=== PATIENT | male | born 1960 | race Caucasian/White ===

== ENCOUNTER 2018-07-16 13:53 | Outpatient (RCR) | payer OTHER, SELFPAY ==
--- NOTE | 2018-07-16 07:36 | PTTR_ITS ---
DATE: 07/16/18 OBJECTIVE: Therapeutic procedures ([id number]). Today I upgraded Seferino's current strengthening program. He was provided an upgraded 2 day per week strengthening routine with global strengthening placing emphasis on core stabilization and cardiovascular exercises. See flow sheets for exercises, weights and repetitions. He completed this program without limitations. Direct treatment time: 1:30 til 2:10 P.M. Completing the remainder of his program from 2:10 til 2:40 P.M. via Wellness at no charge. RF/gc
== END 2018-07-25 23:59 | disposition home or self-care (01) ==
LOC: PT 13:53
PROVIDERS: PCP Internal Medicine; Referring Provider Orthopaedic Surgery Orthopaedic Surgery of the Spine; Visit Provider Orthopaedic Surgery Orthopaedic Surgery of the Spine
DX: M54.5 Low back pain (principal); Z47.89 Encounter for other orthopedic aftercare; Z98.1 Arthrodesis status
CPT/HCPCS: 97110

== ENCOUNTER 2018-10-27 12:58 | Outpatient (REF) | payer MEDICAID, SELFPAY ==
[2018-10-27 22:54] LABS: Anion Gap 10.3 mmol/L (3-11); BUN 14 mg/dL (7-18); CO2 26.7 mmol/L (21.0-32.0); CREATININE 1.03 mg/dL (0.70-1.30); Calcium 9.3 mg/dL (8.5-10.1); Chloride 103 mmol/L (98-107); Cholesterol 219 mg/dL (50-200); Glucose 95 mg/dL (70-100); HDL Cholesterol 46 mg/dL (40-60); LDL CHOLESTEROL 142 mg/dL (<100); Potassium 4.4 mmol/L (3.5-5.1); Sodium 140 mmol/L (136-145); Triglyceride 188 mg/dL (30-150)
== END 2018-10-27 13:18 ==
LOC: NCHCN 12:58
PROVIDERS: PCP Internal Medicine; Visit Provider Internal Medicine
DX: E78.5 Hyperlipidemia, unspecified (principal); E66.3 Overweight
CPT/HCPCS: 80048; 80061; 83721

== ENCOUNTER 2019-09-18 13:47 | Outpatient (REF) | payer MEDICAID, SELFPAY ==
[2019-09-18 21:42] LABS: Anion Gap 8.4 mmol/L (3-11); BUN 17 mg/dL (7-18); CO2 27.6 mmol/L (21.0-32.0); CREATININE 1.18 mg/dL (0.70-1.30); Calcium 9.2 mg/dL (8.5-10.1); Chloride 105 mmol/L (98-107); Glucose 85 mg/dL (70-100); Potassium 4.6 mmol/L (3.5-5.1); Sodium 141 mmol/L (136-145)
== END 2019-09-18 14:07 ==
LOC: NCHCN 13:47
PROVIDERS: PCP Internal Medicine; Visit Provider Internal Medicine
DX: I10 Essential (primary) hypertension (principal)
CPT/HCPCS: 80048

== ENCOUNTER 2020-08-12 13:08 | Outpatient (REF) | payer MEDICAID, SELFPAY ==
[2020-08-12 21:46] LABS: ALT 41 U/L (16-63); AST 27 U/L (15-37); Albumin 3.8 g/dL (3.4-5.0); Alkaline Phosphatase 63 U/L (46-116); Anion Gap 5.2 mmol/L (3-11); BUN 14 mg/dL (7-18); Bilirubin, Total 0.4 mg/dL (0.2-1.0); CO2 29.8 mmol/L (21.0-32.0); CREATININE 0.98 mg/dL (0.70-1.30); Calcium 8.8 mg/dL (8.5-10.1); Calculated LDL 131 mg/dL (<100); Chloride 108 mmol/L (98-107); Cholesterol 204 mg/dL (<200); Glucose 95 mg/dL (74-106); HDL Cholesterol 47 mg/dL (40-60); Potassium 4.2 mmol/L (3.5-5.1); Sodium 143 mmol/L (136-145); Total Protein 6.9 g/dL (6.4-8.2); Triglyceride 133 mg/dL (<150)
== END 2020-08-12 13:28 ==
LOC: NCHCN 13:08
PROVIDERS: PCP Internal Medicine; Visit Provider Internal Medicine
DX: E78.5 Hyperlipidemia, unspecified (principal); I10 Essential (primary) hypertension
CPT/HCPCS: 80053; 80061

== ENCOUNTER 2021-08-28 14:34 | Outpatient (REF) | payer MEDICAID, SELFPAY ==
[2021-08-28 14:57] LABS: Anion Gap 6.6 mmol/L (3-11); BUN 14 mg/dL (7-18); CO2 29.4 mmol/L (21.0-32.0); Calcium 9.4 mg/dL (8.5-10.1); Calculated LDL 127 mg/dL (<100); Chloride 104 mmol/L (98-107); Cholesterol 206 mg/dL (<200); Glucose 98 mg/dL (74-106); HDL Cholesterol 49 mg/dL (40-60); Potassium 4.8 mmol/L (3.5-5.1); Sodium 140 mmol/L (136-145); Triglyceride 153 mg/dL (<150)
== END 2021-08-28 14:35 | disposition home or self-care (01) ==
LOC: NCHCN 14:34
PROVIDERS: PCP Internal Medicine; Visit Provider Internal Medicine
DX: I10 Essential (primary) hypertension (principal); E78.5 Hyperlipidemia, unspecified
CPT/HCPCS: 80048; 80061

== ENCOUNTER 2022-11-01 13:07 | Outpatient (REF) | payer MEDICAID, SELFPAY ==
[2022-11-01 15:31] LABS: ALT 56 U/L (16-63); AST 43 U/L (15-37); Alkaline Phosphatase 71 U/L (46-116); Anion Gap 7.2 mmol/L (3-11); BUN 14 mg/dL (7-18); Bilirubin, Total 0.6 mg/dL (0.2-1.0); CO2 25.8 mmol/L (21.0-32.0); CREATININE 1.1 mg/dL (0.70-1.30); Calcium 9.1 mg/dL (8.5-10.1); Calculated LDL 123 mg/dL (<100); Chloride 105 mmol/L (98-107); Cholesterol 205 mg/dL (<200); Estimated GFR 76.37 (mL/min/1.73m2); Glucose 100 mg/dL (74-106); HDL Cholesterol 54 mg/dL (40-60); Potassium 4.8 mmol/L (3.5-5.1); Sodium 138 mmol/L (136-145); Total Protein 7.6 g/dL (6.4-8.2); Triglyceride 142 mg/dL (<150)
== END 2022-11-01 13:08 | disposition home or self-care (01) ==
LOC: NCHCN 13:07
PROVIDERS: PCP Internal Medicine; Visit Provider Nurse Practitioner Family
DX: I10 Essential (primary) hypertension (principal); E78.5 Hyperlipidemia, unspecified
CPT/HCPCS: 80053; 80061

== ENCOUNTER 2023-07-26 07:20 | Day surgery (SDC) | payer MEDICAID, SELFPAY ==
[2023-07-26 07:35] VITALS: BP 150/114; PULSE 92; RESP 22; TEMP 36.6; O2SAT 98
[2023-07-26] MEDS: Tropicam./Phenyleph. (1/2.5%) 5 ML BTL OS ×3 (07:47→07:58)
--- NOTE | 2023-07-26 08:05 | W.ANESPRE ---
General Info Date of Service Date Performed: 07/26/23 Height: 6 ft 1 in Weight: 108.8 kg Body Mass Index (BMI): 31.6 Surgical Procedure: Operation Date: 07/26/23 09:10 Proposed Procedure Side Surgeon p Cataract Extraction with IOL Implant Left Gus Lux MD Actual Procedure Side Surgeon p Cataract Extraction with IOL Implant Left Gus Lux MD Pre-Op Diagnosis Post-Op Diagnosis CATARACT LEFT EYE CATARACT LEFT EYE Meds Allergies and Home Medications Allergies Allergy/AdvReac Type Severity Reaction Status Date / Time No Known Allergies Allergy Unverified 07/26/23 07:35 Home Medication Medication Instructions Recorded amlodipine 10 mg tablet 10 mg PO DAILY 07/24/23 famotidine 20 mg tablet 20 mg PO DAILY PRN 07/24/23 methocarbamol 750 mg tablet 750 mg PO HS PRN 07/24/23 olmesartan 20 mg tablet 20 mg PO DAILY 07/24/23 sildenafil 100 mg tablet (Viagra) 100 mg PO DIRECTED 07/24/23 diclofenac sodium 1 % topical gel 1 applic topical DIRECTED 07/25/23 Current Visit Medications: Current Medications Generic Name Dose Route Start Last Admin Trade Name Freq PRN Reason Stop Dose Admin Acetaminophen 1,000 mg 07/26/23 06:00 Acetaminophen 500 Mg Tab PO 08/25/23 05:59 Q4H PRN PRN Balanced Salt Solution 500 ml 07/26/23 06:00 Balanced Salt Soln.-Plus 500 Ml Bag OP 08/25/23 05:59 DIRECTED [facility] Miscellaneous Medication 0 ml 07/26/23 06:00 Prednisolone 1%, Moxifloxacin 0.5%, Nepafenac 0.1% 5ml Btl OS 08/25/23 05:59 DIRECTED [facility] Miscellaneous Medication 0 ml 07/26/23 06:00 07/26/23 07:58 Tropicam./Phenyleph. (1/2.5%) 5 Ml Btl OS 08/25/23 05:59 1 drp DIRECTED [facility] Administration Tetracaine HCl 0 ml 07/26/23 06:00 Tetracaine 0.5% 4 Ml Btl OS 08/25/23 05:59 DIRECTED [facility] Medical History Medical History GERD (gastroesophageal reflux disease) HTN (hypertension) Medical History Comments:: if under anesthesia for a long period he experiences PONV Surgical History Surgical History Hx of knee surgery x3 2 acl recon and meniscus repair Hx of spinal fusion Tobacco Smoking/Tobacco Use Status: Former Tobacco Use Alcohol Alcohol Intake: current Alcohol intake frequency: 0-2 drinks per day Alcohol type: beer and wine Substance Use Substance use: Rarely Substance use type: marijuana Details: last alcohol t-1 last marijuana use t-3, smokes Vital Signs and Lab Results Vital Signs Most Recent Vital Signs in EMR: Most Recent Vital Signs Temp Pulse Resp BP Pulse Ox 36.6 C 92 H 22 150/114 H 98 07/26/23 07:35 07/26/23 07:35 07/26/23 07:35 07/26/23 07:35 07/26/23 07:35 Lab Results Blood Type / Crossmatch: No Data to Display Complete Blood Count: No Data to Display Complete Metabolic Panel: No Data to Display Liver Function Panel: No Data to Display Coagulation Panel: No Data to Display Cardiac Panel: No Data to Display Arterial Blood Gas: No Data to Display Venous Blood Gas: No Data to Display Pancreas Panel: No Data to Display Thyroid Panel: No Data to Display Infectious Disease: No Data to Display Blood Cultures: No Data to Display Toxicology Panel: No Data to Display Anesthesia Assessment and Plan Anesthesia History Personal History: No History of Anesthesia Complications Family History: No Family History of Anesthesia Complications Exercise Tolerance Exercise Tolerance: Metabolic Equivalents>4 Pertinent Negatives Pertinent Negatives: No Symptoms of GERD Cardiac & Pulmonary Exam Cardiac Exam: Normal S1/S2 Heart Sounds Pulmonary Exam: Clear Bilateral Breath Sounds Implantable Cardiac Device Does patient have a Pacemaker or an ICD?: No Airway Exam Known Difficult Airway: No Mallampati Class: 2 Mouth Opening: Normal (> 3cm) Thyromental Distance: Greater than 3 cm Facial Hair: Full Gloria Neck Range of Motion: Full ROM Neck Circumference: Normal Teeth Condition: Normal Dentition ASA Classification ASA Score: ASA 2 Emergency Case?: No NPO Status NPO Status: NPO Clears >2 hours, Solids >8 hours Anesthesia Plan Resuscitation Status: Full Code Anesthesia Technique: MAC Anesthesia Airway Planned: Natural Airway Monitors Used: Standard Monitors
[2023-07-26 08:06] VITALS: BMI 31.6
--- NOTE | 2023-07-26 08:08 | HPE_ITS ---
Assessment and Plan Assessment and plan (1) Nuclear age-related cataract, left eye: Status: Acute Assessment and plan: Assessment: Visually significant cataract of the left eye. Plan: Cataract extraction with lens implantation of the left eye. (2) Cortical age-related cataract, left eye: Status: Acute Assessment and plan: Assessment: Visually significant cataract of the left eye. Plan: Cataract extraction with lens implantation of the left eye. History of Present Illness History of Present Illness Chief Complaint: Progressive decreased vision, left eye and right eye Narrative: The patient is a 63-year-old male with history of diminished visual acuity in both eyes at both distance and near. He no significant difficulty with glare from driving at night. On examination he was noted to have bilateral n uclear/posterior subcapsular cataract. He is significantly symptomatic that he desires cataract surgery and attempt to improve and maximize his vision. PFSH All Active Problems (Updated 07/26/23 @ 08:12 by Gus Lux MD) Cortical age-related cataract, left eye (Acute) Nuclear age-related cataract, left eye (Acute) Medical History GERD (gastroesophageal reflux disease) HTN (hypertension) Surgical History Hx of knee surgery x3 2 acl recon and meniscus repair Hx of spinal fusion Social History Smoking/Tobacco Use Status: Former Tobacco Use Quit Date: 11/25/79 Smoking risk assessment performed?: Yes Alcohol Intake: current Alcohol Intake frequency: 0-2 drinks per day Alcohol type: beer and wine Drug use: Rarely Substance use type: marijuana Details: last alcohol t-1 last marijuana use t-3, smokes Housing: house Do you feel safe at home: Yes Do you feel safe in your relationship?: Yes Meds Allergies and Home Medications Allergies Allergy/AdvReac Type Severity Reaction Status Date / Time No Known Allergies Allergy Unverified 07/26/23 07:35 Home Medications Medication Instructions Recorded Confirmed Type amlodipine 10 mg tablet 10 mg PO DAILY 07/24/23 07/26/23 History famotidine 20 mg tablet 20 mg PO DAILY PRN 07/24/23 07/25/23 History methocarbamol 750 mg tablet 750 mg PO HS PRN 07/24/23 07/25/23 History olmesartan 20 mg tablet 20 mg PO DAILY 07/24/23 07/26/23 History sildenafil 100 mg tablet (Viagra) 100 mg PO DIRECTED 07/24/23 07/25/23 History diclofenac sodium 1 % topical gel 1 applic topical DIRECTED 07/25/23 07/26/23 History Exam Eyes Other: Most recent ocular examination reveals corrected visual acuity of 20/25 OD, 20/30 OS. Extract motility is normal. Intraocular pressure is 9 OD, 10 OS. Slit-lamp examination is significant for moderate nuclear/posterior subcapsular cataracts OU. Funduscopic examination reveals disc cupping of 0.3 OU with normal vessels, macula, peripheral retina and vitreous. Resp Auscultation: clear to auscultation bilaterally Cardio Rate: regular rate Rhythm: regular rhythm Results Last Vital Signs Temp 36.6 C 07/26/23 07:35 Pulse 92 H 07/26/23 07:35 Resp 22 07/26/23 07:35 BP 150/114 H 07/26/23 07:35 Pulse Ox 98 07/26/23 07:35
[2023-07-26] MEDS: Balanced Salt Soln.-PLUS 500 ML BAG OP (08:22)
[2023-07-26] MEDS: Duovisc Viscoelastic System EACH 1 EACH (08:23)
[2023-07-26] MEDS: Tetracaine 0.5% 4 ML BTL OS (08:23)
[2023-07-26] MEDS: Lidocaine 1% Pres-Free 5 ML VIAL (08:24)
[2023-07-26] MEDS: Phenylephrine/Lidocaine (15/10) MG/ML 1 ML VIAL (08:26)
[2023-07-26] MEDS: Povidone-Iodine Ophth 30 ML BTL (08:27)
--- NOTE | 2023-07-26 08:43 | W.PM.DSUDISC ---
Date of service: 07/26/23 Time of Service: 08:43 Discharge Plan Disposition Patient Disposition: Home Discharge Details Attending Provider: Gus Lux Primary Care Provider: Estella Salas Home Meds and New Rx's Prescriptions: No Action sildenafil [Viagra] 100 mg tablet 100 mg PO DIRECTED Patient Comments: Take 0.5-1 tablet by mouth as needed famotidine 20 mg Tablet 20 mg PO DAILY PRN methocarbamol 750 mg tablet 750 mg PO HS PRN Patient Comments: TAKE ONE TABLET BY MOUTH EVERY EVENING NEEDED amlodipine 10 mg tablet 10 mg PO DAILY Patient Comments: Take 1 tablet by mouth once a day for blood pressure olmesartan 20 mg tablet 20 mg PO DAILY Patient Comments: TAKE 1 TABLET BY MOUTH ONCE A DAY diclofenac sodium 1 % gel 1 applic TOPICAL DIRECTED Patient Comments: APPLY 4 GRAM TO AFFECTED AREA(S) EVERY 12 HOURS NEEDED FOR PAIN Discharge Instructions Stand Alone Forms: Post-op Topical Cataract, Andrew Bynum (DSU) Discharge Orders Discharge Orders: Discharge Order (Routine); Ordered 07/26/23 Ordered By: Gus Lux DS: Diagnosis Discharge Diagnosis (1) Nuclear age-related cataract, left eye: Status: Resolved (2) Cortical age-related cataract, left eye: Status: Resolved
--- NOTE | 2023-07-26 08:44 | W.PM.OP ---
Date of service: 07/26/23 Time of Service: 08:44 Operative Note Operative Note DATE OF PROCEDURE: 07/26/23 PRE-OP DIAGNOSIS: Nuclear/posterior subcapsular cataract, left eye POST-OP DIAGNOSIS: same PROCEDURE: Cataract extraction using phacoemulsification with intraocular lens implant, left eye SURGEON: Gus Lux ANESTHESIA TYPE: Local By Surgeon and MAC Refer to Anesthesia Record PATHOLOGY: none sent COMPLICATIONS: None Patient was transported to: same day Patient's condition: stable Implants: Varun and Varun Tecnis Eyhance DIB00 Indications: Progressive decreased vision due to cataract, left eye Procedure Description: CATARACT SURGERY OPERATIVE REPORT PREOPERATIVE DIAGNOSIS: 1. Nuclear/posterior subcapsular cataract, left eye POSTOPERATIVE DIAGNOSIS: Same OPERATION: 1. Cataract extraction using phacoemulsification with posterior chamber intraocular lens implant, left eye. IOL: IOL Metal Base Blocker/Model: Varun & Varun Tecnis Eyhance DIB00 IOL Power: + 15.0 diopters IOL Serial Number: [id number] Optic Diameter: 6.0 mm Haptic/Overall Diameter: 13.0 mm PHACO INFO: Jose PinchPointurion Vision System with OZil and Active Fluidics Cumulative Dispersed Energy (CDE): 10.56 seconds SURGEON: Gus Lux MD, VICKY ANESTHESIA: Monitored A [facility] (MAC), with local sub-tenon's anesthetic infiltration COMPLICATIONS: None SPECIMENS: None INDICATIONS FOR PROCEDURE: The patient is a 62-year-old male with history of diminished visual acuity in his left eye secondary to the development of nuclear/posterior subcapsular cataract. He is significantly symptomatic that he desires cataract surgery and attempt to improve and maximize his vision. The option of cataract surgery was offered to the patient and he wished to proceed. See office notes for detailed information. PROCEDURE: The correct surgical eye was identified and marked as the left eye and the pupil was dilated in the preoperative area using mydriatics and cycloplegics. The dilated pupil size was 7.0 mm. The patient elected to proceed without oral sedation. The patient was brought to the operating room where cardiopulmonary monitoring was instituted and surgical time-out was performed, confirming the correct operative eye and IOL power. Topical anesthesia was administered and ophthalmic povidone-iodine 5% was instilled into the conjunctival fornices. The kita-ocular area was prepped with Betadine 10% solution and draped in the usual sterile fashion for intraocular surgery, including an aperture drape. A Tegaderm transparent film dressing was cut in half and used to cover the lashes and lid margins. Care was taken to sequester the lashes and lid margins under the Tegaderm dressing. A lid speculum was placed between the lids of the operative eye and the Jose LuxOR Revalia operating microscope was maneuvered into position. Javier scissors were then used to make a conjunctival buttonhole approximately 6mm posterior to the limbus in the inferonasal quadrant. Blunt dissection was carried out to expose bare sclera, and a blunt-tipped sub-tenon?s anesthesia cannula was introduced and passed posteriorly along the globe where non-preserved plain lidocaine was injected into posterior sub-Tenon?s space. A sideport knife was used to make a paracentesis port. Intraocular phenylephrine/lidocaine was injected into the anterior chamber.. The anterior chamber was filled with viscoelastic. A keratome knife was used to construct a 2-plane near-clear corneal tunnel extending 2.0mm into clear cornea. A flap was raised on the anterior capsule and capsulorhexis forceps were used to complete a continuous curvilinear capsulorhexis of 5.0 mm. Balanced salt solution was then used to perform cortical cleaving hydrodissection and nuclear hydrodelineation until the lens could be freely rotated within the capsular bag. The lens nucleus was then disassembled and removed within the capsular bag and iris plane using phacoemulsification. Residual cortical material was removed using the irrigation/aspiration handpiece. The posterior capsule was carefully polished to remove as much residual lens epithelial cells as safely possible. The capsular bag was then inflated and the anterior chamber deepened with viscoelastic. The lens implant described above was inserted into the capsular bag using the Varun and Varun Simplicity pre-loaded injector. A Kuglen hook was used to dial the IOL into position. Residual viscoelastic was then removed first from posterior to the IOL, then from the anterior chamber using the I/A handpiece. The lens implant was noted to center nicely within the capsular bag. The incisions were stromally hydrated, and the anterior chamber was reformed using BSS. Then 0.5cc of moxifloxacin 1.0mg/ml were injected into the capsular bag and anterior chamber. The incisions were checked with a Weck spear and found to be secure. Several drops of ophthalmic povidone-iodine 5% were then applied to the eye followed by two drops of Imprimis combination prednisolone/moxifloxacin/nepafenac solution. The drapes were removed and a clear plastic protective eye shield was placed over the eye. The patient was then returned to [facility] Day Surgery in stable condition.
[2023-07-26 08:58] VITALS: BP 132/94; PULSE 79; RESP 20; TEMP 36.7; O2SAT 98
--- NOTE | 2023-07-26 09:04 | ANES.PREOP_ITS ---
cancel document General Info Date of Service Date Performed: 07/26/23 Height: 6 ft 1 in Weight: 108.8 kg Body Mass Index (BMI): 31.6 Surgical Procedure: Operation Date: 07/26/23 09:10 Proposed Procedure Side Surgeon p Cataract Extraction with IOL Implant Left Gus Lux MD Actual Procedure Side Surgeon p Cataract Extraction with IOL Implant Left Gus Lux MD Pre-Op Diagnosis Post-Op Diagnosis CATARACT LEFT EYE CATARACT LEFT EYE Meds Allergies and Home Medications Allergies Allergy/AdvReac Type Severity Reaction Status Date / Time No Known Allergies Allergy Unverified 07/26/23 07:35 Home Medication Medication Instructions Recorded amlodipine 10 mg tablet 10 mg PO DAILY 07/24/23 famotidine 20 mg tablet 20 mg PO DAILY PRN 07/24/23 methocarbamol 750 mg tablet 750 mg PO HS PRN 07/24/23 olmesartan 20 mg tablet 20 mg PO DAILY 07/24/23 sildenafil 100 mg tablet (Viagra) 100 mg PO DIRECTED 07/24/23 diclofenac sodium 1 % topical gel 1 applic topical DIRECTED 07/25/23 PFSH Active Problems Active Problems: Problem Status Onset Code Cortical age-related cataract, left eye H25.012 Nuclear age-related cataract, left eye H25.12 Medical History Medical History GERD (gastroesophageal reflux disease) HTN (hypertension) Medical History Comments:: if under anesthesia for a long period he experiences PONV Surgical History Surgical History Hx of knee surgery x3 2 acl recon and meniscus repair Hx of spinal fusion Tobacco Smoking/Tobacco Use Status: Former Tobacco Use Alcohol Alcohol Intake: current Alcohol intake frequency: 0-2 drinks per day Alcohol type: beer and wine Substance Use Substance use: Rarely Substance use type: marijuana Details: last alcohol t-1 last marijuana use t-3, smokes Vital Signs and Lab Results Vital Signs Most Recent Vital Signs in EMR: Most Recent Vital Signs Temp Pulse Resp BP Pulse Ox 36.7 C 79 20 132/94 H 98 07/26/23 08:58 07/26/23 08:58 07/26/23 08:58 07/26/23 08:58 07/26/23 08:58 Lab Results Blood Type / Crossmatch: No Data to Display Complete Blood Count: No Data to Display Complete Metabolic Panel: No Data to Display Liver Function Panel: No Data to Display Coagulation Panel: No Data to Display Cardiac Panel: No Data to Display Arterial Blood Gas: No Data to Display Venous Blood Gas: No Data to Display Pancreas Panel: No Data to Display Thyroid Panel: No Data to Display Infectious Disease: No Data to Display Blood Cultures: No Data to Display Toxicology Panel: No Data to Display Anesthesia Assessment and Plan Anesthesia History Personal History: No History of Anesthesia Complications Family History: No Family History of Anesthesia Complications Exercise Tolerance Exercise Tolerance: Metabolic Equivalents>4 Pertinent Negatives Pertinent Negatives: No Symptoms of GERD Cardiac & Pulmonary Exam Cardiac Exam: Normal S1/S2 Heart Sounds Pulmonary Exam: Clear Bilateral Breath Sounds Implantable Cardiac Device Does patient have a Pacemaker or an ICD?: No Airway Exam Known Difficult Airway: No Mallampati Class: 2 Mouth Opening: Normal (> 3cm) Thyromental Distance: Greater than 3 cm Neck Range of Motion: Full ROM Neck Circumference: Normal Teeth Condition: Normal Dentition ASA Classification ASA Score: ASA 2 Emergency Case?: No NPO Status NPO Status: NPO Clears >2 hours, Solids >8 hours Anesthesia Plan Resuscitation Status: Full Code Anesthesia Technique: MAC Anesthesia Airway Planned: Natural Airway Monitors Used: Standard Monitors
--- NOTE | 2023-07-26 09:06 | W.ANESPOSTOP ---
Postoperative Evaluation Date, Time and Location Date Performed: 07/26/23 Time Performed: 09:06 Patient Location: Day Surgery Unit Vital Signs Most Recent Imported Vital Signs: Most Recent Vital Signs Temp Pulse Resp BP Pulse Ox 36.7 C 79 20 132/94 H 98 07/26/23 08:58 07/26/23 08:58 07/26/23 08:58 07/26/23 08:58 07/26/23 08:58 Pain Score Most Recent Pain Score: Most Recent Pain Score Pain Level 0 07/26/23 08:58 Assessment Mental Status: Awake (Alert & Oriented to Patient Baseline) Airway and Respiratory Function: Patent airway with normal (patient baseline) respiratory exam Cardiovascular Function: Hemodynamically Stable Hydration Status: Adequately Hydrated Nausea & Vomiting: No Nausea or Vomiting Pain: Pt. Denies Any Pain Peripheral Nerve Block: Patient did not receive a nerve block
[2023-07-26 09:35] VITALS: BMI 31.6
== END 2023-07-26 09:02 | disposition home or self-care (01) ==
LOC: SUR 07:21
PROVIDERS: PCP Internal Medicine; Visit Provider Ophthalmology
PROC: (CPT 66984; principal; 2023-07-26 09:00)
DX: H25.12 Age-related nuclear cataract, left eye (principal); H25.012 Cortical age-related cataract, left eye; K21.9 Gastro-esophageal reflux disease without esophagitis; I10 Essential (primary) hypertension
CPT/HCPCS: 66984; V2632

== ENCOUNTER 2023-08-09 10:21 | Day surgery (SDC) | payer MEDICAID, SELFPAY ==
--- NOTE | 2023-08-07 19:30 | W.PREOPHP ---
Assessment and Plan Assessment and plan (1) Nuclear age-related cataract, right eye: Status: Acute Assessment and plan: Assessment: Visually significant cataract, right eye. Plan: Cataract extraction with lens implantation, right eye. (2) Posterior subcapsular age-related cataract, right eye: Status: Acute Assessment and plan: Assessment: Visually significant cataract, right eye. Plan: Cataract extraction with lens implantation, right eye. History of Present Illness History of Present Illness Chief Complaint: Progressive decreased vision, right eye Narrative: The patient is a 62-year-old male who presented with complaints of progressive decreased vision in both eyes at both distance and near. He notes significant difficulty reading his paperwork as well as driving at night due to symptoms of glare. He can no longer read road signs at night. On examination he was noted to have bilateral cataracts. He was significantly symptomatic that he desired cataract surgery which was performed OS on 07/26/2023. He is doing well postoperatively, and now presents for cataract surgery in the right eye. Review of Systems All systems reviewed & are unremarkable except as noted in HPI and below PFSH All Active Problems Posterior subcapsular age-related cataract, right eye (Acute) Nuclear age-related cataract, right eye (Acute) Medical History GERD (gastroesophageal reflux disease) HTN (hypertension) Surgical History Hx of knee surgery x3 2 acl recon and meniscus repair Hx of spinal fusion Social History Smoking/Tobacco Use Status: Former Tobacco Use Quit Date: 11/25/79 Smoking risk assessment performed?: Yes Alcohol Intake: current Alcohol Intake frequency: 0-2 drinks per day Alcohol type: beer and wine Drug use: Rarely Substance use type: marijuana Housing: house Do you feel safe at home: Yes Do you feel safe in your relationship?: Yes Meds Allergies and Home Medications Allergies Allergy/AdvReac Type Severity Reaction Status Date / Time No Known Allergies Allergy Unverified 08/07/23 14:16 Home Medications Medication Instructions Recorded Confirmed Type amlodipine 10 mg tablet 10 mg PO DAILY 07/24/23 08/09/23 History famotidine 20 mg tablet 20 mg PO DAILY PRN 07/24/23 08/07/23 History methocarbamol 750 mg tablet 750 mg PO HS PRN 07/24/23 08/07/23 History olmesartan 20 mg tablet 20 mg PO DAILY 07/24/23 08/09/23 History sildenafil 100 mg tablet (Viagra) 100 mg PO DIRECTED 07/24/23 08/07/23 History diclofenac sodium 1 % topical gel 1 applic topical DIRECTED 07/25/23 08/09/23 History Exam Eyes Other: Most recent ocular examination revealed corrected visual acuity of 20/25 right eye, uncorrected visual acuity of 20/25 left eye. Intraocular pressure is 9 OD, 10 OS. Extract motility is normal. Slit-lamp examination reveals moderate nuclear and posterior subcapsular cataract in the right eye. There is a well-positioned PCIOL in the left eye with clear posterior capsule. Funduscopic examination shows disc cupping of 0.3 OU with normal vessels, macula, peripheral retina and vitreous. Resp Auscultation: clear to auscultation bilaterally Cardio Rate: regular rate Rhythm: regular rhythm
--- NOTE | 2023-08-09 06:26 | W.ANESPRE ---
General Info Date of Service Date Performed: 08/09/23 Height: 6 ft 1 in Weight: 108.8 kg Body Mass Index (BMI): 31.6 Surgical Procedure: Operation Date: 08/09/23 12:10 Proposed Procedure Side Surgeon p Cataract Extraction with IOL Implant Right Gus Lux MD Meds Allergies and Home Medications Allergies Allergy/AdvReac Type Severity Reaction Status Date / Time No Known Allergies Allergy Unverified 08/07/23 14:16 Home Medication Medication Instructions Recorded amlodipine 10 mg tablet 10 mg PO DAILY 07/24/23 famotidine 20 mg tablet 20 mg PO DAILY PRN 07/24/23 methocarbamol 750 mg tablet 750 mg PO HS PRN 07/24/23 olmesartan 20 mg tablet 20 mg PO DAILY 07/24/23 sildenafil 100 mg tablet (Viagra) 100 mg PO DIRECTED 07/24/23 diclofenac sodium 1 % topical gel 1 applic topical DIRECTED 07/25/23 Current Visit Medications: Current Medications Generic Name Dose Route Start Last Admin Trade Name Freq PRN Reason Stop Dose Admin Acetaminophen 1,000 mg 08/09/23 06:00 Acetaminophen 500 Mg Tab PO 09/08/23 05:59 Q4H PRN PRN Balanced Salt Solution 500 ml 08/09/23 06:00 Balanced Salt Soln.-Plus 500 Ml Bag OP 09/08/23 05:59 DIRECTED ELTON Miscellaneous Medication 0 ml 08/09/23 06:00 Prednisolone 1%, Moxifloxacin 0.5%, Nepafenac 0.1% 5ml Btl OD 09/08/23 05:59 DIRECTED ELTON Miscellaneous Medication 0 ml 08/09/23 06:00 Tropicam./Phenyleph. (1/2.5%) 5 Ml Btl OD 09/08/23 05:59 DIRECTED ELTON Tetracaine HCl 0 ml 08/09/23 06:00 Tetracaine 0.5% 4 Ml Btl OD 09/08/23 05:59 DIRECTED ELTON PFSH Active Problems Active Problems: Problem Status Onset Code Posterior subcapsular age-related cataract, right eye H25.041 Nuclear age-related cataract, right eye H25.11 Cortical age-related cataract, left eye H25.012 Nuclear age-related cataract, left eye H25.12 Medical History Medical History GERD (gastroesophageal reflux disease) HTN (hypertension) Medical History Comments:: if under anesthesia for a long period he experiences PONV Surgical History Surgical History Hx of knee surgery x3 2 acl recon and meniscus repair Hx of spinal fusion Tobacco Smoking/Tobacco Use Status: Former Tobacco Use Alcohol Alcohol Intake: current Alcohol intake frequency: 0-2 drinks per day Alcohol type: beer and wine Substance Use Substance use: Rarely Substance use type: marijuana Vital Signs and Lab Results Vital Signs Most Recent Vital Signs in EMR: Temp Pulse Resp BP Pulse Ox 36.5 C 83 20 146/94 H 99 08/09/23 10:34 08/09/23 10:34 08/09/23 10:34 08/09/23 10:34 08/09/23 10:34 Lab Results Blood Type / Crossmatch: No Data to Display Complete Blood Count: No Data to Display Complete Metabolic Panel: No Data to Display Liver Function Panel: No Data to Display Coagulation Panel: No Data to Display Cardiac Panel: No Data to Display Arterial Blood Gas: No Data to Display Venous Blood Gas: No Data to Display Pancreas Panel: No Data to Display Thyroid Panel: No Data to Display Infectious Disease: No Data to Display Blood Cultures: No Data to Display Toxicology Panel: No Data to Display Anesthesia Assessment and Plan Anesthesia History Personal History: No History of Anesthesia Complications Family History: No Family History of Anesthesia Complications Exercise Tolerance Exercise Tolerance: Metabolic Equivalents>4 Cardiac & Pulmonary Exam Cardiac Exam: Normal S1/S2 Heart Sounds Pulmonary Exam: Clear Bilateral Breath Sounds Implantable Cardiac Device Does patient have a Pacemaker or an ICD?: No Airway Exam Known Difficult Airway: No Mallampati Class: 2 Mouth Opening: Normal (> 3cm) Thyromental Distance: Greater than 3 cm Neck Range of Motion: Full ROM Neck Circumference: Normal Teeth Condition: Normal Dentition ASA Classification ASA Score: ASA 2 Emergency Case?: No NPO Status NPO Status: NPO Clears >2 hours, Solids >8 hours Anesthesia Plan Resuscitation Status: Full Code Anesthesia Technique: MAC Anesthesia Airway Planned: Natural Airway Monitors Used: Standard Monitors Preoperative Comments:: 63 yo male for repeat cataract removal. previous without MKO, no issues. No healthy history changes.
[2023-08-09 10:34] VITALS: BP 146/94; PULSE 83; RESP 20; TEMP 36.5; O2SAT 99
[2023-08-09] MEDS: Tropicam./Phenyleph. (1/2.5%) 5 ML BTL OD ×3 (10:40→10:50)
[2023-08-09 10:41] VITALS: BMI 31.6
[2023-08-09] MEDS: Povidone-Iodine Ophth 30 ML BTL (11:22)
[2023-08-09] MEDS: Tetracaine 0.5% 4 ML BTL OD (11:22)
[2023-08-09] MEDS: Balanced Salt Soln.-PLUS 500 ML BAG OP (11:27)
[2023-08-09] MEDS: Duovisc Viscoelastic System EACH 1 EACH (11:27)
[2023-08-09] MEDS: Phenylephrine/Lidocaine (15/10) MG/ML 1 ML VIAL (11:28)
[2023-08-09] MEDS: Lidocaine 1% Pres-Free 5 ML VIAL (11:28)
[2023-08-09 11:49] VITALS: BP 141/104; PULSE 79; RESP 18; TEMP 36.4; O2SAT 97
--- NOTE | 2023-08-09 11:50 | ROE_ITS ---
Date of service: 08/09/23 Time of Service: 11:51 Operative Note Operative Note DATE OF PROCEDURE: 08/09/23 PRE-OP DIAGNOSIS: Nuclear/posterior subcapsular cataract, right eye POST-OP DIAGNOSIS: same PROCEDURE: Cataract extraction using phacoemulsification with intraocular lens implant, right eye SURGEON: Gus Lux ANESTHESIA TYPE: Local By Surgeon and MAC Refer to Anesthesia Record ESTIMATED BLOOD LOSS: 0 PATHOLOGY: none sent COMPLICATIONS: None Patient was transported to: same day Patient's condition: stable Implants: Varun [employer] Varun Tecnis Eyhance DIB00 Indications: Progressive visual loss due to cataract, right eye Procedure Description: CATARACT SURGERY OPERATIVE REPORT PREOPERATIVE DIAGNOSIS: 1. Nuclear/posterior subcapsular cataract, right eye POSTOPERATIVE DIAGNOSIS: Same OPERATION: 1. Cataract extraction using phacoemulsification with posterior chamber intraocular lens implant, right eye. IOL: IOL Verification Specialist/Model: Varun [employer] Varun [employer]ecnis Eyhance DIB00 IOL Power: + 14.5 diopters IOL Serial Number: [id number] Optic Diameter: 6.0mm Haptic/Overall Diameter: 13.0mm PHACO INFO: Jose One[employer]urion Vision System with OZil and Active Fluidics Cumulative Dispersed Energy (CDE): 5.37 seconds SURGEON: Gus Lux MD, VICKY ANESTHESIA: Monitored Anesthesia Care (MAC), with local sub-tenon's anesthetic infiltration COMPLICATIONS: None SPECIMENS: None INDICATIONS FOR PROCEDURE: The patient is a 63-year-old male with history of diminished visual acuity in both eyes secondary to the development of bilateral nuclear/posterior subcapsular cataract. He has already undergone cataract surgery in the left eye and is doing well postoperatively. He now presents for cataract surgery in the right eye. See office notes for detailed information PROCEDURE: The correct surgical eye was identified and marked as the right eye and the pupil was dilated in the preoperative area using mydriatics and cycloplegics. The dilated pupil size was 7.0 mm. The patient elected to proceed without oral sedation. The patient was brought to the operating room where cardiopulmonary monitoring was instituted and surgical time-out was performed, confirming the correct operative eye and IOL power. Topical anesthesia was administered and ophthalmic povidone-iodine 5% was instilled into the conjunctival fornices. The kita-ocular area was prepped with Betadine 10% solution and draped in the usual sterile fashion for intraocular surgery, including an aperture drape. A Tegaderm transparent film dressing was cut in half and used to cover the lashes and lid margins. Care was taken to sequester the lashes and lid margins under the Tegaderm dressing. A lid speculum was placed between the lids of the operative eye and the Jose Lux[employer] Rev[employer] operating microscope was maneuvered into position. Javier scissors were then used to make a conjunctival buttonhole approximately 6mm posterior to the limbus in the inferonasal quadrant. Blunt dissection was carried out to expose bare sclera, and a blunt-tipped sub-tenon?s anesthesia cannula was introduced and passed posteriorly along the globe where non- preserved plain lidocaine was injected into posterior sub-Tenon?s space. A sideport knife was used to make a paracentesis port. Intraocular phenylephrine/lidocaine was injected into the anterior chamber. The anterior chamber was filled with viscoelastic. A keratome knife was used to co nstruct a 2-plane clear corneal tunnel extending 2.0mm into clear cornea. A flap was raised on the anterior capsule and capsulorhexis forceps were used to complete a continuous curvilinear capsulorhexis of 5.0 mm. Balanced salt solution was then used to perform cortical cleaving hydrodissection and nuclear hydrodelineation until the lens could be freely rotated within the capsular bag. The lens nucleus was then disassembled and removed within the capsular bag and iris plane using phacoemulsification. Residual cortical material was removed using the I/A handpiece. The posterior capsule was carefully polished to remove as much residual lens epithelial cells as safely possible. The capsular bag was then inflated and the anterior chamber deepened with cohesive viscoelastic. The lens implant described above was inserted into the capsular bag using the Varun and Jaison Simplicity pre- loaded injector. A Kuglen hook was used to dial the IOL into position. Residual viscoelastic was then removed first from posterior to the IOL, then from the anterior chamber using the I/A handpiece. The lens implant was noted to center nicely within the capsular bag. The incisions were stromally hydrated, and the anterior chamber was reformed using BSS. Then 0.5cc of moxifloxacin 1.0mg/ml were injected into the capsular bag and anterior chamber. The incisions were checked with a Weck spear and found to be secure. Several drops of ophthalmic povidone-iodine 5% were then applied to the eye followed by two drops of Imprimis combination prednisolone/moxifloxacin/nepafenac solution. The drapes were removed and a clear plastic protective eye shield was placed over the eye. The patient was then returned to [facility] in stable condition.
--- NOTE | 2023-08-09 11:50 | W.PM.DSUDISC ---
Date of service: 08/09/23 Time of Service: 11:50 Discharge Plan Disposition Patient Disposition: Home Discharge Details Attending Provider: Gus Lux Primary Care Provider: Estella Salas Home Meds and New Rx's Prescriptions: No Action sildenafil [Viagra] 100 mg tablet 100 mg PO DIRECTED Patient Comments: Take 0.5-1 tablet by mouth as needed famotidine 20 mg Tablet 20 mg PO DAILY PRN methocarbamol 750 mg tablet 750 mg PO HS PRN Patient Comments: TAKE ONE TABLET BY MOUTH EVERY EVENING NEEDED amlodipine 10 mg tablet 10 mg PO DAILY Patient Comments: Take 1 tablet by mouth once a day for blood pressure olmesartan 20 mg tablet 20 mg PO DAILY Patient Comments: TAKE 1 TABLET BY MOUTH ONCE A DAY diclofenac sodium 1 % gel 1 applic TOPICAL DIRECTED Patient Comments: APPLY 4 GRAM TO AFFECTED AREA(S) EVERY 12 HOURS NEEDED FOR PAIN Discharge Instructions Stand Alone Forms: Post-op Topical Cataract, Andrew Bynum (DSU) Discharge Orders Discharge Orders: Discharge Order (Routine); Ordered 08/09/23 Ordered By: Gus Lux DS: Diagnosis Discharge Diagnosis (1) Nuclear age-related cataract, right eye: Status: Resolved (2) Posterior subcapsular age-related cataract, right eye: Status: Resolved
--- NOTE | 2023-08-09 12:14 | W.ANESPOSTOP ---
Postoperative Evaluation Date, Time and Location Date Performed: 08/09/23 Time Performed: 11:49 Patient Location: Day Surgery Unit Vital Signs Most Recent Imported Vital Signs: Most Recent Vital Signs Temp Pulse Resp BP Pulse Ox 36.4 C L 79 18 141/104 H 97 08/09/23 11:49 08/09/23 11:49 08/09/23 11:49 08/09/23 11:49 08/09/23 11:49 Pain Score Most Recent Pain Score: Most Recent Pain Score Pain Level 0 08/09/23 11:49 Assessment Mental Status: Awake (Alert & Oriented to Patient Baseline) Airway and Respiratory Function: Patent airway with normal (patient baseline) respiratory exam Cardiovascular Function: Hemodynamically Stable Hydration Status: Adequately Hydrated Nausea & Vomiting: No Nausea or Vomiting Pain: Pt. Denies Any Pain Peripheral Nerve Block: Patient did not receive a nerve block
== END 2023-08-09 12:01 | disposition home or self-care (01) ==
LOC: SUR 10:21
PROVIDERS: PCP Internal Medicine; Visit Provider Ophthalmology
PROC: (CPT 66984; principal; 2023-08-09 12:00)
DX: H25.11 Age-related nuclear cataract, right eye (principal); H25.041 Posterior subcapsular polar age-related cataract, right eye; K21.9 Gastro-esophageal reflux disease without esophagitis; I10 Essential (primary) hypertension; Z98.41 Cataract extraction status, right eye
CPT/HCPCS: 66984; V2632

== ENCOUNTER 2024-08-26 14:46 | Outpatient (REF) | payer MEDICAID, SELFPAY ==
[2024-08-26 15:03] LABS: HCT 49.2 % (40.0-50.0); HGB 16.6 g/dL (13.5-17.5); MCH 32.5 pg (27.0-33.0); MCHC 33.7 % (32.0-36.0); MCV 96 fL (80-95); MPV 11.3 fL (8.0-11.0); Platelet Count 176 10^3/uL (130-400); RBC 5.11 10^6/uL (4.36-5.78); RDW 12.9 % (11.8-14.1); RDW-SD 46.2 fL; WBC 4.14 10^3/uL (4.4-10.8)
[2024-08-26 15:18] LABS: ALT 52 U/L (16-63); AST 44 U/L (15-37); Alkaline Phosphatase 73 U/L (46-116); Anion Gap 4.9 mmol/L (3-11); BUN 13 mg/dL (7-18); Bilirubin, Total 0.52 mg/dL (0.2-1.0); CO2 29.1 mmol/L (21.0-32.0); Calcium 9.3 mg/dL (8.5-10.1); Calculated LDL 117 mg/dL (<100); Chloride 106 mmol/L (98-107); Cholesterol 204 mg/dL (<200); Estimated GFR 84.57 (mL/min/1.73m2); Glucose 110 mg/dL (74-106); HDL Cholesterol 56 mg/dL (40-60); Potassium 4.9 mmol/L (3.5-5.1); Sodium 140 mmol/L (136-145); Total Protein 7.8 g/dL (6.4-8.2); Triglyceride 155 mg/dL (<150)
== END 2024-08-26 14:47 | disposition home or self-care (01) ==
LOC: NCHCN 14:46
PROVIDERS: PCP Internal Medicine; Visit Provider Internal Medicine
DX: I10 Essential (primary) hypertension (principal)
CPT/HCPCS: 80053; 80061; 85027

== ENCOUNTER 2024-11-20 14:15 | Outpatient (REF) | payer MEDICAID, SELFPAY ==
[2024-11-20 21:10] LABS: ALT 53 U/L (16-63); AST 34 U/L (15-37); Alkaline Phosphatase 81 U/L (46-116); Bilirubin, Direct 0.1 mg/dL (0.0-0.2); Bilirubin, Total 0.42 mg/dL (0.2-1.0); Total Protein 7.6 g/dL (6.4-8.2)
[2024-11-23 10:25] LABS: Hepatitis C Ab w Rflx HCV PCR Negative (Negative)
== END 2024-11-20 14:16 | disposition home or self-care (01) ==
LOC: NCHCN 14:15
PROVIDERS: PCP Internal Medicine; Visit Provider Internal Medicine
DX: R74.01 Elevation of levels of liver transaminase levels (principal)
CPT/HCPCS: 80076; 86803

== ENCOUNTER 2025-07-12 16:28 | Outpatient (REF) | payer MEDICAID, SELFPAY ==
[2025-07-12 15:53] LABS: ALT 53 U/L (16-63); AST 37 U/L (15-37); Albumin 4.1 g/dL (3.4-5.0); Alkaline Phosphatase 79 U/L (46-116); Anion Gap 8.6 mmol/L (3-11); BUN 14 mg/dL (7-18); Bilirubin, Total 0.5 mg/dL (0.2-1.0); CO2 27.4 mmol/L (21.0-32.0); Calcium 9.4 mg/dL (8.5-10.1); Calculated LDL 69 mg/dL (<100); Chloride 105 mmol/L (98-107); Cholesterol 155 mg/dL (<200); Estimated GFR 95.97 (mL/min/1.73m2); Glucose 104 mg/dL (74-106); HDL Cholesterol 54 mg/dL (>or=40); Potassium 4.9 mmol/L (3.5-5.1); Sodium 141 mmol/L (136-145); Total Protein 7.6 g/dL (6.4-8.2); Triglyceride 164 mg/dL (<150)
[2025-07-12 22:25] LABS: PSA, Screening 2.2 ng/mL (<=4.5)
== END 2025-07-12 16:29 | disposition home or self-care (01) ==
LOC: NCHCN 16:28
PROVIDERS: PCP Internal Medicine; Visit Provider Internal Medicine
DX: R74.01 Elevation of levels of liver transaminase levels (principal); Z12.5 Encounter for screening for malignant neoplasm of prostate
CPT/HCPCS: 80053; 80061; 84153

== ENCOUNTER 2025-10-06 10:29 | Outpatient (REF) | payer MEDICAID, SELFPAY ==
[2025-10-06 18:16] LABS: Microalb ug/mg Crea 23.4 ug/mg Cr
== END 2025-10-06 10:30 | disposition home or self-care (01) ==
LOC: NCHCN 10:29
PROVIDERS: PCP Internal Medicine; Visit Provider Internal Medicine
DX: I10 Essential (primary) hypertension (principal)
CPT/HCPCS: 82043; 82570